=== PATIENT | female | born 2000 | race Caucasian/White ===

== ENCOUNTER 2020-02-24 20:04 | Emergency (ER) | payer OTHER, BC ==
[~2020-02-24] VITALS: Ht 162.6 cm; Wt 60.5 kg
[2020-02-24 20:10] VITALS: TEMP 97.3
[2020-02-24] MEDS ORDERED: LEVOXYL0.05 MG PO (20:13)
[2020-02-24] MEDS ORDERED: SPRINTEC 35 MCG1 TAB PO (20:14)
[2020-02-24] MEDS ORDERED: ZOFRAN ODT4 MG PO (21:35)
[2020-02-24 21:45] VITALS: BP 120/81; PULSE 75
== END 2020-02-24 21:45 | disposition home or self-care (01) ==
LOC: COL.ER 20:04
DX: S06.0X0A Concussion without loss of consciousness, initial encounter (principal); S16.1XXA Strain of muscle, fascia and tendon at neck level, initial encounter; Z79.890 Hormone replacement therapy; V89.2XXA Person injured in unspecified motor-vehicle accident, traffic, initial encounter